=== PATIENT | male | born 1950 | race Caucasian/White ===

== ENCOUNTER 2020-04-24 18:05 | Emergency (ER) | payer BC, SELFPAY ==
[2020-04-24 18:12] VITALS: BP 125/60; PULSE 122; RESP 24; TEMP 35.8; O2SAT 99
--- NOTE | 2020-04-24 18:14 | DI.RAD.S_ITS ---
PROCEDURE: XR CHEST 1V INDICATIONS: sepsis TECHNIQUE: One view of the chest was acquired. COMPARISON: None. FINDINGS: Surgical changes and devices: None. Lungs and pleura: Lungs are clear. No pleural effusions or pneumothorax. Mediastinum: Mediastinal contours appear normal. Heart size is normal. Bones and chest wall: No suspicious bony lesions. Overlying soft tissues appear unremarkable. IMPRESSION: No acute cardiopulmonary abnormality. Dictated by: Bennie Galindo M.D. on 04/24/2020 at 18:49 Approved by: Bennie Galindo M.D. on 04/24/2020 at 18:49
[2020-04-24 18:40] LABS: Add Manual Diff / Slide Review NO; Basophils Absolute Auto 100 /uL (0-100); Basophils Percent Auto 0.3 % (0-2); Eosinophils Absolute Auto 0 /uL (0-450); Eosinophils Percent Auto 0.1 % (2-4); Hematocrit 43.5 % (41-53); Hemoglobin 15.4 g/dL (13.5-17.5); Lymphocytes Absolute Auto 400 /uL (1100-4500); Lymphocytes Percent Auto 1.9 % (25-40); Mean Corpuscular HGB Conc 35.4 % (30-36); Mean Corpuscular Hemoglobin 33.2 PG (26-34); Mean Corpuscular Volume 93.8 fL (80-100); Monocytes Absolute Auto 1200 /uL (0-900); Monocytes Percent Auto 6.3 % (3-14); Neutrophils Absolute Auto 16900 /uL (1500-7000); Neutrophils Percent Auto 91.4 % (50-75); Platelet Count 168 X10^3/uL (150-400); Red Blood Cell Count 4.63 X10^6/uL (4.5-5.9); White Blood Cell Count 18.5 X10^3/uL (4.5-11.0)
[2020-04-24 18:53] LABS: Alanine Aminotransferase 26 IU/L (<50); Albumin 4.3 g/dL (3.5-5.0); Albumin Globulin Ratio 1.3 (1.0-2.8); Alkaline Phosphatase 102 U/L (38-126); Aspartate Aminotransferase 29 IU/L (17-59); Bilirubin Total 1.6 mg/dL (0.2-1.3); Blood Urea Nitrogen 21 mg/dL (9-20); Calcium 9.4 mg/dL (8.4-10.2); Carbon Dioxide 22 mmol/L (22-32); Chloride 103 mmol/L (98-107); Estimated Glomerular Filt Rate > 60.0 mL/min (>60); Globulin 3.4 g/dL (1.7-4.1); Glucose 148 mg/dL (80-110); HEMOLYSIS < 15 (0-50); Lactate (Lactic Acid) 0.9 mmol/L (0.7-2.1); Potassium 3.9 mmol/L (3.4-5.1); Sodium 134 mmol/L (137-145); Total Protein 7.7 g/dL (6.3-8.2)
[2020-04-24 18:58] LABS: Bacteria Urine Moderate (10-30); Culture Indicated Urine Specimen Cultured; RBC Urine >100/HPF (0-5/HPF); Squamous Epithelial Cell Urine 0-1 /HPF (0-5/HPF); WBC Urine >100/HPF (0-5/HPF)
--- NOTE | 2020-04-24 18:58 | ED_ITS ---
HPI - Sepsis General Chief Complaint: Fever Mode of arrival: Ambulatory Source: patient Evaluation Sepsis Screen: Possible Sepsis Risk Sepsis Infection Criteria Present: Suspected New Infection Associated Symptoms: fever, chills, nausea, vomiting, dysuria and foul smelling urine Narrative: 70-year-old male nonsmoker with noncontributory medical history presents from an outside clinic for evaluation of UTI with possible sepsis. He states that on Wednesday he started having urinary frequency and dysuria, on Wednesday he began to have some hematuria and over the course of the day has developed fever, shaking chills and vomited once. He denies any back pain. He has no runny nose or sore throat. He denies chest pain, cough or shortness of breath. He went to an outside clinic and had a urine dip which was positive and given his fever he states he was sent here for a shot of antibiotics. He denies exposure to persons with known coronavirus. Review of Systems Constitutional Constitutional: Reports chills, Denies fatigue, Reports fever(s), Denies frequent falls, Denies lethargy and Denies weakness Eyes Eyes: Denies change in vision, Denies eye discharge, Denies irritation and Denies loss of vision ENT Ears, Nose, Mouth, and Throat: Denies change in voice, Denies dizziness, Denies neck pain, Denies sore throat and Denies throat swelling Cardiovascular Cardiovascular: Denies chest pain, Denies irregular heart rhythm, Denies lightheadedness, Denies palpitations, Denies dyspnea, Denies dyspnea on exertion and Denies orthopnea Respiratory Respiratory: Denies cough, Denies dyspnea, Denies dyspnea on exertion and Denies wheezing Gastrointestinal Gastrointestinal: Denies abdominal pain, Denies change in bowel habits, Denies diarrhea, Reports nausea and Reports vomiting Genitourinary Genitourinary: Denies hematuria, Reports dysuria, Denies flank pain, Reports urinary frequency, Denies urinary incontinence and Reports urinary urgency Musculoskeletal Musculoskeletal: Denies back pain, Denies muscle weakness, Denies neck pain, Denies numbness and Denies tingling Integumentary/Breasts Skin/Breast: Denies pruritus, Denies erythema, Denies rash and Denies wounds Neurologic Neurologic: Denies behavioral changes, Denies confusion, Denies dizziness, Denies frequent falls, Denies loss of vision, Denies numbness, Denies tingling and Denies weakness Psychiatric Psychiatric: Denies anxiety, Denies behavioral changes, Denies confusion, Denies depression, Denies homicidal ideation and Denies suicidal ideation Endocrine Endocrine: Denies fatigue, Denies flushing and Denies palpitations Hematologic/Lymphatic Hematologic/Lymphatic: Denies easy bruising Allergic/Immunologic Allergic/Immunologic: Denies urticaria, Denies throat swelling and Denies wheezing Exam Narrative Exam Narrative: GENERAL: [70M] year old patient appears stated age. Well- nourished, well-developed patient, in mild distress. HEAD: Atraumatic. Normocephalic. EYES: Pupils equal round and reactive. Extraocular motions intact. No scleral icterus. No injection or drainage. ENT: Nose without bleeding, purulent drainage. Throat without erythema, tonsillar hypertrophy or exudate. Airway patent. NECK: Trachea midline. Non tender CARDIOVASCULAR: Tachycardic but regular rhythm without murmurs, gallops, or rubs. RESPIRATORY: Clear to auscultation. Breath sounds equal bilaterally. No wheezes, rales, or rhonchi. GASTROINTESTINAL: Abdomen soft, non-tender, nondistended. EXTREMITIES: No edema or joint tenderness. BACK: Nontender without deformity or crepitance. No flank tenderness. NEURO: AOx3. SKIN: No rash or erythema of visible areas Initial Vital Signs Initial Vital Signs: Vital Signs Temperature 96.5 F L 04/24/20 18:12 Pulse Rate 122 H 04/24/20 18:12 Respiratory Rate 24 04/24/20 18:12 Blood Pressure 125/60 04/24/20 18:12 Pulse Oximetry 99 04/24/20 18:12 Course Course Course Narrative: patient has responded quite well to fluids and HR is down to 80s. He states that is his normal. He feels much better. Labs are very reassuring. [place] very much wants to go [place] He has been given return precautions and has had questions answered to his satisfaction. Orders Ordered: ED Orders 04/24/20 18:14 XR chest 1V Stat 04/24/20 18:29 Complete Blood Count AUTO DIFF Stat Comprehensive Metabolic Panel Stat Lactate (Lactic Acid) Stat Procalcitonin Stat 04/24/20 18:30 Urine Culture Stat Urine Microscopic Stat 04/24/20 18:55 Blood Culture Stat Discontinued Medications Sodium Chloride (Normal Saline 0.9%) 2,310 mls @ 770 mls/hr 30 ml/kg infuse over 3 hr (2310 ml) IV NOW ONE Stop: 04/24/20 21:13 Last Infusion: 04/24/20 20:24 Dose: 0 mls/hr Documented by: Admin: 04/24/20 19:02 Dose: 770 mls/hr Documented by: MARSHALL Ceftriaxone Sodium/Dextrose (Rocephin) 2 gm in 50 mls @ 100 mls/hr IV NOW ONE Stop: 04/24/20 18:43 Last Infusion: 04/24/20 19:51 Dose: 50 mls/hr Documented by: Admin: 04/24/20 19:06 Dose: 100 mls/hr Documented by: MARSHALL Ketorolac Tromethamine (Toradol) 15 mg IV NOW ONE Stop: 04/24/20 18:15 Last Admin: 04/24/20 19:02 Dose: 15 mg Documented by: MARSHALL Vital Signs Vital signs: Vital Signs - 8 hr 04/24/20 19:02 04/24/20 19:18 04/24/20 20:11 Temperature 98.1 F Pulse Rate 86 82 Respiratory Rate 10 L 17 Blood Pressure Blood Pressure [Left Arm] 113/60 112/62 Pulse Oximetry 95 96 04/24/20 20:21 Temperature 98.1 F Pulse Rate 81 Respiratory Rate 19 Blood Pressure 118/65 Blood Pressure [Left Arm] Pulse Oximetry 96 MDM - Sepsis Lab Data Result diagrams: 04/24/20 18:29 04/24/20 18:29 Labs: Lab Results 04/24/20 04/24/20 04/24/20 Range/Units 18:29 18:29 18:29 WBC 18.5 H (4.5-11.0) X10^3/uL RBC 4.63 (4.5-5.9) X10^6/uL Hgb 15.4 (13.5-17.5) g/dL Hct 43.5 (41-53) % MCV 93.8 (80-100) fL MCH 33.2 (26-34) PG MCHC 35.4 (30-36) % RDW 13.0 (11.6-14.8) % Plt Count 168 (150-400) X10^3/uL Neut % (Auto) 91.4 H (50-75) % Lymph % (Auto) 1.9 L (25-40) % [place] % (Auto) 6.3 (3-14) % Eos % (Auto) 0.1 L (2-4) % Baso % (Auto) 0.3 (0-2) % Neut # (Auto) 15151 H (5726-6303) /uL Lymph # (Auto) 400 L (6237-4930) /uL [place] # (Auto) 1200 H (0-900) /uL Eos # (Auto) 0 (0-450) /uL Baso # (Auto) 100 (0-100) /uL Sodium 134 L (137-145) mmol/L Potassium 3.9 (3.4-5.1) mmol/L Chloride 103 (98-107) mmol/L Carbon Dioxide 22 (22-32) mmol/L BUN 21 H (9-20) mg/dL Creatinine 1.00 (0.66-1.25) mg/dL Estimated GFR > 60.0 (>60) mL/min BUN/Creatinine Ratio 21.0 (6-22) Glucose 148 H (80-110) mg/dL Lactate (0.7-2.1) mmol/L Calcium 9.4 (8.4-10.2) mg/dL Total Bilirubin 1.6 H (0.2-1.3) mg/dL AST 29 (17-59) IU/L ALT 26 (<50) IU/L Alkaline Phosphatase 102 (38-126) U/L Total Protein 7.7 (6.3-8.2) g/dL Albumin 4.3 (3.5-5.0) g/dL Globulin 3.4 (1.7-4.1) g/dL Albumin/Globulin Ratio 1.3 (1.0-2.8) Procalcitonin 0.47 (<0.5) ng/mL Urine RBC (0-5/HPF) Urine WBC (0-5/HPF) Ur Squamous Epith Cells (0-5/HPF) Urine Bacteria (None) Ur Culture Indicated? 04/24/20 04/24/20 Range/Units 18:29 18:30 WBC (4.5-11.0) X10^3/uL RBC (4.5-5.9) X10^6/uL Hgb (13.5-17.5) g/dL Hct (41-53) % MCV (80-100) fL MCH (26-34) PG MCHC (30-36) % RDW (11.6-14.8) % Plt Count (150-400) X10^3/uL Neut % (Auto) (50-75) % Lymph % (Auto) (25-40) % [place] % (Auto) (3-14) % Eos % (Auto) (2-4) % Baso % (Auto) (0-2) % Neut # (Auto) (4043-5884) /uL Lymph # (Auto) (2782-6117) /uL Mill[place] # (Auto) (0-900) /uL Eos # (Auto) (0-450) /uL Baso # (Auto) (0-100) /uL Sodium (137-145) mmol/L Potassium (3.4-5.1) mmol/L Chloride (98-107) mmol/L Carbon Dioxide (22-32) mmol/L BUN (9-20) mg/dL Creatinine (0.66-1.25) mg/dL Estimated GFR (>60) mL/min BUN/Creatinine Ratio (6-22) Glucose (80-110) mg/dL Lactate 0.9 (0.7-2.1) mmol/L Calcium (8.4-10.2) mg/dL Total Bilirubin (0.2-1.3) mg/dL AST (17-59) IU/L ALT (<50) IU/L Alkaline Phosphatase (38-126) U/L Total Protein (6.3-8.2) g/dL Albumin (3.5-5.0) g/dL Globulin (1.7-4.1) g/dL Albumin/Globulin Ratio (1.0-2.8) Procalcitonin (<0.5) ng/mL Urine RBC >100/hpf (0-5/HPF) Urine WBC >100/hpf H (0-5/HPF) Ur Squamous Epith Cells 0-1 /hpf (0-5/HPF) Urine Bacteria Moderate (10-30) H (None) Ur Culture Indicated? Specimen cultured Urine Dip Bedside Urine Glucose Negative Bedside Urine Bilirubin + 1 Bedside Urine Ketone ++ 40 Urine Specific [place] 1.020 Bedside Urine Occult Blood +++ Bedside Urine pH 6.0 Bedside Urine Protein +++ 300 Bedside Urine Urobilinogen 1+ 2mg Bedside Urine Nitrite + Positive Bedside Urine Leukocytes +++ 500 Esterase Discharge Plan Departure Patient Disposition: Home Clinical Impression: Acute UTI Discharge Date/Time: 04/24/20 20:24 Instructions: DI for Urinary Tract Infection (UTI) Activity Restrictions/Additional Instructions: *You have been diagnosed with [urinary tract infection] *What to do: *Take medications as directed *Follow up with your primary care provider in 2-3 days, call for an appointment. Let them know you were seen in the Emergency Department and that we ask that you be seen in follow up *Return to ER if you should have any new, worsening or concerning symptoms Prescriptions: New cephalexin [Keflex] 500 mg capsule 500 mg PO QID 7 Days Qty: 28 RF: 0 Referrals: Tg Snell MD [Primary Care Provider] -
[2020-04-24 19:02] VITALS: TEMP 36.7
[2020-04-24] MEDS: KETOROLAC 60 MG/2 ML VIAL 15 MG IV (19:02)
[2020-04-24] MEDS: SODIUM CHLORIDE 0.9% 2,310 ML 770 ML IV (19:02)
[2020-04-24] MEDS: CEFTRIAXONE 2 GM/50 ML FROZ.PIGGY IV (19:06)
[2020-04-24 19:08] LABS: Procalcitonin 0.47 ng/mL (<0.5)
[2020-04-24 19:18] VITALS: BP 113/60; PULSE 86; RESP 10; O2SAT 95
[2020-04-24 20:11] VITALS: BP 112/62; PULSE 82; RESP 17; O2SAT 96
[2020-04-24 20:21] VITALS: BP 118/65; PULSE 81; RESP 19; TEMP 36.7; O2SAT 96
== END 2020-04-24 20:24 | disposition home or self-care (01) ==
PROVIDERS: Emergency Provider Emergency Medicine; PCP Family Medicine; Referring Provider Family Medicine
DX: N39.0 Urinary tract infection, site not specified (principal)
CPT/HCPCS: 36415; 71045; 80053; 81003; 81015; 83605; 84145; 85025; 87040; 87077; 87086; 87186; 96365; 96375; 99284; J0696; J1885

== ENCOUNTER 2023-02-18 14:40 | Emergency (ER) | payer BC, SELFPAY ==
--- NOTE | 2023-02-18 14:44 | PC.NURSE ---
Dr. Huitron called from [facility] to notify ED that he saw this pt this morning. Pt c/o black tarry stool x several days, pt stopped NSAIDS 1 day ago. Pts BP was soft this morning which is not common for this patient, per Dr. Huitron.
[2023-02-18 14:54] VITALS: BP 118/67; PULSE 96; RESP 18; TEMP 36.8; O2SAT 99; BMI 26.6
[2023-02-18 15:19] LABS: Add Manual Diff / Slide Review NO; Basophils Absolute Auto 100 /uL (0-100); Basophils Percent Auto 0.9 % (0-2); Eosinophils Absolute Auto 100 /uL (0-450); Eosinophils Percent Auto 0.8 % (2-4); Hematocrit 33.8 % (41-53); Hemoglobin 12.1 g/dL (13.5-17.5); Lymphocytes Absolute Auto 2400 /uL (1100-4500); Lymphocytes Percent Auto 23.3 % (25-40); Mean Corpuscular HGB Conc 35.6 % (30-36); Mean Corpuscular Hemoglobin 32.7 PG (26-34); Mean Corpuscular Volume 91.9 fL (80-100); Monocytes Absolute Auto 700 /uL (0-900); Monocytes Percent Auto 6.3 % (3-14); Neutrophils Absolute Auto 7100 /uL (1500-7000); Neutrophils Percent Auto 68.7 % (50-75); Platelet Count 239 X10^3/uL (150-400); Red Blood Cell Count 3.68 X10^6/uL (4.5-5.9); Red Cell Distribution Width 12.8 % (11.6-14.8); White Blood Cell Count 10.4 X10^3/uL (4.5-11.0)
[2023-02-18 15:25] LABS: INR 1.2 (0.9-1.3); Prothrombin Time 13.6 SECONDS (10.1-12.7)
[2023-02-18 15:28] LABS: PTT Partial Thromboplastin Tim 31 SECONDS (26-36)
[2023-02-18 15:35] LABS: Alanine Aminotransferase 28 IU/L (<50); Albumin 3.8 g/dL (3.5-5.0); Albumin Globulin Ratio 1.5 (1.0-2.8); Alkaline Phosphatase 58 U/L (38-126); Aspartate Aminotransferase 29 IU/L (17-59); BUN Creatinine Ratio 41.2 (6-22); Bilirubin Total 0.3 mg/dL (0.2-1.3); Blood Urea Nitrogen 35 mg/dL (9-20); Calcium 8.6 mg/dL (8.4-10.2); Carbon Dioxide 27 mmol/L (22-32); Chloride 102 mmol/L (98-107); Estimated Glomerular Filt Rate > 60 mL/min (>60); Globulin 2.5 g/dL (1.7-4.1); Glucose 104 mg/dL (80-110); HEMOLYSIS < 15 (0-50); Potassium 3.7 mmol/L (3.4-5.1); Sodium 137 mmol/L (137-145); Total Protein 6.3 g/dL (6.3-8.2)
--- NOTE | 2023-02-18 16:10 | DI.CT.S_ITS ---
PROCEDURE: CT ABDOMEN PELVIS W CON INDICATIONS: abd pain, blood per rectum, eval diverticulitis TECHNIQUE: After the administration of intravenous contrast, axial sections acquired from the lung bases to the pubic symphysis. Coronal and sagittal reformats were performed. For radiation dose reduction, the following was used: automated exposure control, adjustment of mA and/or kV according to patient size. COMPARISON: None. FINDINGS: Image quality: Excellent. Lung bases: Unremarkable. Heart: No significant findings. ABDOMEN: Liver: Unremarkable. Gallbladder: Gallbladder is distended and shows no gross abnormality. Biliary ducts: Unremarkable. Pancreas: Unremarkable. Spleen: Unremarkable. Adrenal Glands: Unremarkable. Kidneys and Ureters: 9 mm low midpole left renal cortical cyst is seen. No nephrolithiasis or hydronephrosis. No hydroureter. Stomach and Bowel: Appendix is normal in size and appearance. There is no bowel obstruction. Questionable diffuse gastric wall thickening is noted which may be due to under distension. Infectious or inflammatory gastritis cannot be excluded. There are few fluid distended small bowel left side of abdomen with questionable wall thickening, low-grade enteritis cannot be excluded. No other area of abnormal bowel wall thickening. No abscess collection. Peritoneum: No abnormal intraperitoneal fluid. No free air. Ventral Wall: No hernias. Abdominal Nodes: No retroperitoneal or mesenteric adenopathy by size criteria. Vessels: Aorta and inferior vena cava are normal in size. PELVIS: Pelvic Organs: Unremarkable. Bladder: Unremarkable. Pelvic Nodes: No enlarged lymph nodes. Miscellaneous: No hernias are seen. Bones: Grade 1 anterolisthesis of L4 on L5 is seen. Degenerative endplate changes are noted throughout lower thoracic and lumbar spine. No acute vertebral body compression fractures. No suspicious bony lesions. IMPRESSION: 1. Questionable gastric wall thickening and edema which may be due to under distension. Low-grade gastritis cannot be excluded. GI correlation is recommended. 2. A few fluid-filled small bowel loops in left side of abdomen with questionable small bowel wall thickening concerning for low-grade enteritis. 3. No bowel obstruction. No free fluid or free air. No abscess collection. Normal appendix. Dictated by: Lizandro Burton M.D. on 02/18/2023 at 16:10 Approved by: Lizandro Burton M.D. on 02/18/2023 at 16:22
[2023-02-18] MEDS: PANTOPRAZOLE 40 MG VIAL 80 MG IV (16:11)
[2023-02-18 16:55] VITALS: PULSE 83; O2SAT 99
[2023-02-18 16:56] VITALS: BP 107/58; PULSE 82; O2SAT 99
[2023-02-18 17:00] VITALS: BP 117/62; PULSE 84; O2SAT 97
[2023-02-18 17:30] VITALS: BP 117/63; PULSE 79; RESP 17; O2SAT 99
--- NOTE | 2023-02-20 22:14 | ED_ITS ---
HPI - GI Bleed General Chief complaint: GI Bleed Stated complaint: Poss anemia, Blood in toilet Time Seen by Provider: 02/18/23 16:03 Source: patient Mode of arrival: Ambulatory History of Present Illness HPI Narrative: 72M presenting with dark stools for the last 3-4 days. Pt notes taking naproxen regularly over the last several weeks due to joint pains. No blood thinning medications. Pt noted worsening generalized malaise today prompting presentation, concern for anemia. Pt stopped taking naproxen over the last 24 hours. No hemetemesis/hemoptysis. Related Data Previous Rx's Medication Instructions Recorded tamsulosin 0.4 mg capsule 0.4 mg PO BEDTIME #90 caps 10/08/21 Allergies Allergy/AdvReac Type Severity Reaction Status Date / Time No Known Drug Allergies Allergy Verified 01/21/22 14:59 Patient History Medical History BPH w urinary obs/LUTS Erectile dysfunction History of UTI History of UTI UTI (urinary tract infection) Social History Smoking Status: Never smoker Smoking Status: Never smoker Exam Narrative Exam Narrative: Vitals reviewed. Nursing note reviewed Constitutional: interactive HENT: Moist mucous membranes EYES: No scleral icterus NECK: no masses CV: Well perfused peripherally, no cyanosis present PULM: Unlabored respirations, symmetric chest rise ABD: Non-distended Rectal: melena is present, no active bleeding MS: No gross deformities, no asymmetric edema noted SKIN: Warm and dry. PSYCH: Appropriate affect NEURO: Follows simple commands, moves extremities, interactive with exam Initial Vital Signs Initial Vital Signs: Vital Signs Temperature 98.3 F 02/18/23 14:54 Pulse Rate 96 H 02/18/23 14:54 Respiratory Rate 18 02/18/23 14:54 Blood Pressure 118/67 02/18/23 14:54 Pulse Oximetry 99 02/18/23 14:54 Oxygen Delivery Method Room Air 02/18/23 14:54 Course Orders Ordered: Discontinued Medications Ondansetron HCl (Ondansetron 4 Mg/2 Ml Inj) 4 mg IV NOW PRN PRN Reason: Nausea And Vomiting Ondansetron HCl (Ondansetron 4 Mg Odt) 4 mg SL NOW PRN PRN Reason: Nausea And Vomiting Pantoprazole Sodium (Pantoprazole 40 Mg Vial) 80 mg IV NOW ONE Stop: 02/18/23 15:00 Last Admin: 02/18/23 16:11 Dose: 80 mg Documented By: EDUARD MDM - GI Bleed Lab Data 02/18/23 15:05 02/18/23 15:05 Labs: Lab Results 02/18/23 02/18/23 02/18/23 Range/Units 15:05 15:05 15:05 WBC 10.4 (4.5-11.0) X10^3/uL RBC 3.68 L (4.5-5.9) X10^6/uL Hgb 12.1 L (13.5-17.5) g/dL Hct 33.8 L (41-53) % MCV 91.9 (80-100) fL MCH 32.7 (26-34) PG MCHC 35.6 (30-36) % RDW 12.8 (11.6-14.8) % Plt Count 239 (150-400) X10^3/uL Neut % (Auto) 68.7 (50-75) % Lymph % (Auto) 23.3 L (25-40) % [place] % (Auto) 6.3 (3-14) % Eos % (Auto) 0.8 L (2-4) % Baso % (Auto) 0.9 (0-2) % Neut # (Auto) 7100 H (3047-3906) /uL Lymph # (Auto) 2400 (4114-8942) /uL [place] # (Auto) 700 (0-900) /uL Eos # (Auto) 100 (0-450) /uL Baso # (Auto) 100 (0-100) /uL PT 13.6 H (10.1-12.7) SECONDS INR 1.2 (0.9-1.3) APTT 31 (26-36) SECONDS Sodium 137 (137-145) mmol/L Potassium 3.7 (3.4-5.1) mmol/L Chloride 102 (98-107) mmol/L Carbon Dioxide 27 (22-32) mmol/L BUN 35 H (9-20) mg/dL Creatinine 0.85 (0.66-1.25) mg/dL Estimated GFR > 60 (>60) mL/min BUN/Creatinine Ratio 41.2 H (6-22) Glucose 104 (80-110) mg/dL Calcium 8.6 (8.4-10.2) mg/dL Total Bilirubin 0.3 (0.2-1.3) mg/dL AST 29 (17-59) IU/L ALT 28 (<50) IU/L Alkaline Phosphatase 58 (38-126) U/L Total Protein 6.3 (6.3-8.2) g/dL Albumin 3.8 (3.5-5.0) g/dL Globulin 2.5 (1.7-4.1) g/dL Albumin/Globulin Ratio 1.5 (1.0-2.8) Blood Type Antibody Screen 02/18/23 Range/Units 15:05 WBC (4.5-11.0) X10^3/uL RBC (4.5-5.9) X10^6/uL Hgb (13.5-17.5) g/dL Hct (41-53) % MCV (80-100) fL MCH (26-34) PG MCHC (30-36) % RDW (11.6-14.8) % Plt Count (150-400) X10^3/uL Neut % (Auto) (50-75) % Lymph % (Auto) (25-40) % [place] % (Auto) (3-14) % Eos % (Auto) (2-4) % Baso % (Auto) (0-2) % Neut # (Auto) (1033-4501) /uL Lymph # (Auto) (1100-3447) /uL [place] # (Auto) (0-900) /uL Eos # (Auto) (0-450) /uL Baso # (Auto) (0-100) /uL PT (10.1-12.7) SECONDS INR (0.9-1.3) APTT (26-36) SECONDS Sodium (137-145) mmol/L Potassium (3.4-5.1) mmol/L Chloride (98-107) mmol/L Carbon Dioxide (22-32) mmol/L BUN (9-20) mg/dL Creatinine (0.66-1.25) mg/dL Estimated GFR (>60) mL/min BUN/Creatinine Ratio (6-22) Glucose (80-110) mg/dL Calcium (8.4-10.2) mg/dL Total Bilirubin (0.2-1.3) mg/dL AST (17-59) IU/L ALT (<50) IU/L Alkaline Phosphatase (38-126) U/L Total Protein (6.3-8.2) g/dL Albumin (3.5-5.0) g/dL Globulin (1.7-4.1) g/dL Albumin/Globulin Ratio (1.0-2.8) Blood Type O Positive Antibody Screen Negative MDM Narrative Medical decision making narrative: 72-year-old male presenting with concern for dark stools the last several days. On presentation, vital signs reassuring as above. Physical exam notable for well-appearing 72-year-old male in no acute distress, grossly reassuring cardiac and pulmonary exam, benign abdomen, rectal exam with dark stool that is positive for occult blood. Initial concern for acute upper versus lower GI bleeding event, acute blood loss anemia, hemorrhagic shock, viral syndrome, gastritis, peptic ulcer disease, mass lesion, medication effect. Broad screening labs were obtained and notable for mild anemia as above. Patient had no recurrent stools in the emergency department. Vital signs remained reassuring throughout emergency department stay. Discussed findings with patient and family member at bedside. Given patient's recent heavy NSAID use, suspect bleeding tract setting NSAID use. However, patient does not have evidence of vital sign abnormalities, patient without recurrent melanotic stools in the emergency department, the patient reporting significant improvement in overall symptoms throughout emergency department observation period. Discussed further management with admission observation versus discharge and close outpatient follow up next 24 hours for repeat la boratory analysis. After discussion, patient elected to discharge and follow up tomorrow for repeat laboratory analysis. Return precautions were discussed. Discharge Plan Departure Patient Disposition: Home Clinical Impression: Acute GI bleeding Instructions: Gastrointestinal Bleeding Activity Restrictions/Additional Instructions: *You have been diagnosed with GI bleeding. Please stop using your naproxen. Please follow up tomorrow for repeat blood draw as discussed. Please return to the emergency department if you develop any recurrent or worsening symptoms. *Please follow up with your primary care provider in 2-3 days, call for an appointment. Let them know you were seen in the Emergency Department and that we ask that you be seen in follow up. We will electronically transmit a record of today's note if your PCP is in our system *Return to Emergency Department if you should have any new, worsening or concerning symptoms, such as [fever greater than 101 F, shaking chills, w orsening pain, persistent vomiting or other bothersome symptoms] Prescriptions: No Action tamsulosin 0.4 mg capsule 0.4 mg PO BEDTIME Qty: 90 0RF Referrals: Iftikhar Huitron MD [Primary Care Provider] - Stand Alone Forms: Patient Portal/API
== END 2023-02-18 18:14 | disposition home or self-care (01) ==
PROVIDERS: Emergency Provider Emergency Medicine; PCP Family Medicine
DX: K92.2 Gastrointestinal hemorrhage, unspecified (principal); R10.9 Unspecified abdominal pain
CPT/HCPCS: 36415; 74177; 80053; 82272; 85025; 85610; 85730; 86850; 86900; 86901; 99284; C9113

== ENCOUNTER → 2024-10-24 12:13 | Outpatient (CLI) | payer BC, SELFPAY ==
--- NOTE | 2024-10-24 12:16 | DI.US.S_ITS ---
PROCEDURE: US PERIPH VENOUS LOW EXTREM LT INDICATIONS: LEFT LEG SWELLING / RULE OUT DVT TECHNIQUE: Real-time imaging, as well as color and pulse Doppler interrogation, were performed of the lower extremity deep veins from the inguinal ligament to the popliteal fossa, with documentation of the visualized calf veins. COMPARISON: None. FINDINGS: The common femoral, femoral, popliteal, and the visualized calf veins are normally compressible, and free of intraluminal thrombus. Color and pulse Doppler demonstrate normal phasic intraluminal flow. There is normal augmentation response to distal compression maneuver. In the posterior/medial mid to distal thigh, there is a hematoma measuring approximately 17.0 x 2.1 x 2.1 cm. IMPRESSION: No findings of lower extremity deep venous thrombosis. Large posterior/medial thigh hematoma. Dictated by: Ronni Alejandro M.D. on 10/24/2024 at 13:44 Approved by: Ronni Alejandro M.D. on 10/24/2024 at 13:45
== END ==
LOC: US 12:14
PROVIDERS: PCP Family Medicine; Referring Provider Orthopaedic Surgery Foot and Ankle Surgery; Visit Provider Orthopaedic Surgery Foot and Ankle Surgery
DX: S70.12XA Contusion of left thigh, initial encounter (principal); M79.89 Other specified soft tissue disorders
CPT/HCPCS: 93971